=== PATIENT | male | born 1940 | race Caucasian/White ===

== ENCOUNTER 2019-04-25 12:48 | Inpatient (IN) | payer MEDICAID, MEDICARE, OTHER ==
[~2019-04-25] VITALS: Ht 180.3 cm; Wt 66.4 kg
[~2019-04-25 12:48] MED LIST: CEPHALEXIN500 MG ORAL; KEFLEX500 MG PO; UNOBMED
[2019-04-25 12:55] VITALS: BP 118/104
--- NOTE | 2019-04-25 13:03 | Emergency Room Report ---
History of Present Illness General Chief Complaint: Chest Pain Source: Family Member Present Illness HPI 79-year-old male denies any past medical history no surgical history no family history of cardiac disease presents with chest pain that started yesterday, constant he does endorse some shortness of breath no aggravating relieving factors severity is mild, patient endorses a discomfort he cannot really describe it, no radiation of the pain, not ripping or tearing, patient presents for evaluation Allergies: Coded Allergies: No Known Allergies (Unverified , 04/25/19) Patient History Past Medical History: see triage record Reviewed Nursing Documentation: PMH: Agreed; PSxH: Agreed Nursing Documentation-PMH Past Medical History: No History, Except For Review of Systems All Other Systems: negative except mentioned in HPI Physical Exam Sp02 EP Interpretation: reviewed, normal General Appearance: well appearing, no apparent distress, alert Head: normocephalic, atraumatic Eyes: bilateral eye PERRL, bilateral eye EOMI ENT: uvula midline, moist mucus membranes Neck: supple, thyroid normal, supple/symm/no masses Respiratory: lungs clear, no respiratory distress, no retraction, no accessory muscle use Cardiovascular #1: normal peripheral pulses, regular rate, rhythm, no edema, no gallop, no murmur Gastrointestinal: non tender, soft, no guarding, no rebound Musculoskeletal: normal inspection Neurologic: alert, oriented x3 Psychiatric: mood/affect normal Skin: no rash, warm/dry Medical Decision Making Diagnostic Impression: Primary Impression: Chest pain Qualified Codes: R07.9 - Chest pain, unspecified ER Course 79-year-old male, presents with chest pain concerning for possible ACS, differential diagnosis includes pneumonia, dissection, atypical chest pain Aspirin, Ativan given Patient feeling better We will admit patient to telemetry for ACS rule out Patient admitted to Dr. Rangel Laboratory Tests Test 04/25/19 13:05 White Blood Count 17.6 K/UL (4.8-10.8) H Red Blood Count 5.77 M/UL (4.70-6.10) Hemoglobin 15.4 G/DL (14.2-18.0) Hematocrit 48.5 % (42.0-52.0) Mean Corpuscular Volume 84 FL (80-99) Mean Corpuscular Hemoglobin 26.7 PG (27.0-31.0) L Mean Corpuscular Hemoglobin Concent 31.8 G/DL (32.0-36.0) L Red Cell Distribution Width 14.1 % (11.6-14.8) Platelet Count 366 K/UL (150-450) Mean Platelet Volume 5.0 FL (6.5-10.1) L Neutrophils (%) (Auto) % (45.0-75.0) Lymphocytes (%) (Auto) % (20.0-45.0) Monocytes (%) (Auto) % (1.0-10.0) Eosinophils (%) (Auto) % (0.0-3.0) Basophils (%) (Auto) % (0.0-2.0) Differential Total Cells Counted 100 Neutrophils % (Manual) 90 % (45-75) H Lymphocytes % (Manual) 6 % (20-45) L Monocytes % (Manual) 4 % (1-10) Eosinophils % (Manual) 0 % (0-3) Basophils % (Manual) 0 % (0-2) Band Neutrophils 0 % (0-8) Platelet Estimate Adequate Platelet Morphology Normal Red Blood Cell Morphology Normal Prothrombin Time 11.4 SEC (9.30-11.50) Prothrombin Time INR 1.1 (0.9-1.1) PTT 26 SEC (23-33) Sodium Level 141 MMOL/L (136-145) Potassium Level 4.3 MMOL/L (3.5-5.1) Chloride Level 105 MMOL/L (98-107) Carbon Dioxide Level 27 MMOL/L (21-32) Anion Gap 10 mmol/L (5-15) Blood Urea Nitrogen 42 mg/dL (7-18) H Creatinine 1.1 MG/DL (0.55-1.30) Estimate Glomerular Filtration Rate mL/min (>60) Glucose Level 153 MG/DL (74-106) H Calcium Level 9.3 MG/DL (8.5-10.1) Total Bilirubin 0.5 MG/DL (0.2-1.0) Aspartate Amino Transferase (AST) 22 U/L (15-37) Alanine Aminotransferase (ALT) 33 U/L (12-78) Alkaline Phosphatase 78 U/L (46-116) Troponin I 0.005 ng/mL (0.000-0.056) Pro-B-Type Natriuretic Peptide 210 pg/mL (0-125) H Total Protein 7.4 G/DL (6.4-8.2) Albumin 3.6 G/DL (3.4-5.0) Globulin 3.8 g/dL Albumin/Globulin Ratio 0.9 (1.0-2.7) L Lipase 66 U/L (73-393) L EKG Diagnostic Results EKG Time: 12:54 EP Interpretation: Sinus tachycardia, rate 110, QTc 44, no acute ST elevations , normal axis, ST Segments: other - Flipped T waves 2 3 aVF Rhythm Strip Diag. Results Rhythm Strip Time: 13:06 EP Interpretation: yes Rate: 107 Rhythm: other - Sinus tachycardia Chest X-Ray Diagnostic Results Chest X-Ray Diagnostic Results : Chest X-Ray Ordered: Yes # of Views/Limited/Complete: 1 View Indication: Chest Pain EP Interpretation: Yes Interpretation: no consolidation, no effusion, no pneumothorax, no acute cardiopulmonary disease Impression: No acute disease Electronically Signed by: Abrahan Acevedo MD Disposition: ADMITTED INPATIENT Condition: Stable Abrahan Acevedo MD Apr 25, 2019 13:03
[2019-04-25] MEDS ORDERED: Mylanta II UD 30ml ORAL ONE (13:15)
[2019-04-25] MEDS ORDERED: LORazepam Inj 2mg/ml 1ml IV ONE (13:15)
[2019-04-25 13:44] LABS: HEMATOCRIT 48.5 % (42.0-52.0); HEMOGLOBIN 15.4 G/DL (14.2-18.0); MEAN CORPUSCULAR VOLUME 84 FL (80-99); PLATELET COUNT 366 K/UL (150-450); RED BLOOD COUNT 5.77 M/UL (4.70-6.10); RED CELL DISTRIBUTION WIDTH 14.1 % (11.6-14.8); WHITE BLOOD COUNT 17.6 K/UL (4.8-10.8)
[2019-04-25 13:58] LABS: ANION GAP 10 mmol/L (5-15); BLOOD UREA NITROGEN 42 mg/dL (7-18); CALCIUM 9.3 MG/DL (8.5-10.1); CARBON DIOXIDE 27 MMOL/L (21-32); CHLORIDE 105 MMOL/L (98-107); CREATININE 1.1 MG/DL (0.55-1.30); POTASSIUM 4.3 MMOL/L (3.5-5.1); SODIUM 141 MMOL/L (136-145)
[2019-04-25 13:59] LABS: INR 1.1 (0.9-1.1)
[2019-04-25 14:09] LABS: ALANINE AMINOTRANSFERASE 33 U/L (12-78); ALBUMIN 3.6 G/DL (3.4-5.0); ALBUMIN/GLOBULIN RATIO 0.9 (1.0-2.7); ALKALINE PHOSPHATASE 78 U/L (46-116); ASPARTATE AMINO TRANSFERASE 22 U/L (15-37); BILIRUBIN,TOTAL 0.5 MG/DL (0.2-1.0)
[2019-04-25 16:00] VITALS: BP 107/72
--- NOTE | 2019-04-25 16:51 | History & Physical ---
History and Physical History & Physicial History and Physical HPI Patient is a 79-year-old male with no significant past medical or surgical history, admitted with chest pain that started yesterday, constant he does endorse some shortness of breath no aggravating relieving factors severity is mild, patient endorses a discomfort he cannot really describe it, no radiation of the pain, not ripping or tearing, patient presents for evaluation Allergies: No Known Allergies Past Medical History: NA All Other Systems: negative except mentioned in HPI Physical Exam Vital signs noted General Appearance: well appearing, no apparent distress, alert Head: normocephalic, atraumatic Eyes: bilateral eye PERRL, bilateral eye EOMI ENT: uvula midline, moist mucus membranes Neck: supple, thyroid normal, supple/symm/no masses Respiratory: lungs clear, no respiratory distress, no retraction, no accessory muscle use Cardiovascular: normal peripheral pulses, HS1, HS2 normal, regular rate, rhythm , no edema, no gallop, no murmur Gastrointestinal: non tender, soft, no guarding, no rebound Musculoskeletal: normal inspection Neurologic: alert, oriented x3 Psychiatric: mood/affect normal Skin: no rash, warm/dry Impression: Chest pain No significant previous medical history Plan Telemetry Aspirin Monitor labs PPX Cardiology Consult Cardiac Diet Echocardiogram LE dupplex, VQ scan Patient feeling better We will admit patient to telemetry for ACS rule out Patient admitted to Dr. Rangel Laboratory Tests Test 04/25/19 13:05 White Blood Count 17.6 K/UL (4.8-10.8) H Red Blood Count 5.77 M/UL (4.70-6.10) Hemoglobin 15.4 G/DL (14.2-18.0) Hematocrit 48.5 % (42.0-52.0) Mean Corpuscular Volume 84 FL (80-99) Mean Corpuscular Hemoglobin 26.7 PG (27.0-31.0) L Mean Corpuscular Hemoglobin Concent 31.8 G/DL (32.0-36.0) L Red Cell Distribution Width 14.1 % (11.6-14.8) Platelet Count 366 K/UL (150-450) Mean Platelet Volume 5.0 FL (6.5-10.1) L Neutrophils (%) (Auto) % (45.0-75.0) Lymphocytes (%) (Auto) % (20.0-45.0) Monocytes (%) (Auto) % (1.0-10.0) Eosinophils (%) (Auto) % (0.0-3.0) Basophils (%) (Auto) % (0.0-2.0) Differential Total Cells Counted 100 Neutrophils % (Manual) 90 % (45-75) H Lymphocytes % (Manual) 6 % (20-45) L Monocytes % (Manual) 4 % (1-10) Eosinophils % (Manual) 0 % (0-3) Basophils % (Manual) 0 % (0-2) Band Neutrophils 0 % (0-8) Platelet Estimate Adequate Platelet Morphology Normal Red Blood Cell Morphology Normal Prothrombin Time 11.4 SEC (9.30-11.50) Prothrombin Time INR 1.1 (0.9-1.1) PTT 26 SEC (23-33) Sodium Level 141 MMOL/L (136-145) Potassium Level 4.3 MMOL/L (3.5-5.1) Chloride Level 105 MMOL/L (98-107) Carbon Dioxide Level 27 MMOL/L (21-32) Anion Gap 10 mmol/L (5-15) Blood Urea Nitrogen 42 mg/dL (7-18) H Creatinine 1.1 MG/DL (0.55-1.30) Estimate Glomerular Filtration Rate mL/min (>60) Glucose Level 153 MG/DL (74-106) H Calcium Level 9.3 MG/DL (8.5-10.1) Total Bilirubin 0.5 MG/DL (0.2-1.0) Aspartate Amino Transferase (AST) 22 U/L (15-37) Alanine Aminotransferase (ALT) 33 U/L (12-78) Alkaline Phosphatase 78 U/L (46-116) Troponin I 0.005 ng/mL (0.000-0.056) Pro-B-Type Natriuretic Peptide 210 pg/mL (0-125) H Total Protein 7.4 G/DL (6.4-8.2) Albumin 3.6 G/DL (3.4-5.0) Globulin 3.8 g/dL Albumin/Globulin Ratio 0.9 (1.0-2.7) L Lipase 66 U/L (73-393) L EKG Diagnostic Results EKG Time: 12:54 EP Interpretation: Sinus tachycardia, rate 110, QTc 44, no acute ST elevations , normal axis, ST Segments: other - Flipped T waves 2 3 aVF Chest X-Ray: no consolidation, no effusion, no pneumothorax, no acute cardiopulmonary disease Zbigniew Whittington MD Apr 25, 2019 16:51
[2019-04-25] MEDS ORDERED: Nitroglycerin Subl 0.4mg tab SL PRN (17:00)
[2019-04-25 20:00] VITALS: BP 96/53
[2019-04-25] MEDS: Heparin 5000 units/ml inj SUBQ SCH (21:17)
--- NOTE | 2019-04-25 22:45 | Consultation ---
DATE OF CONSULTATION: 04/25/2019 CARDIOLOGY CONSULTATION CONSULTING PHYSICIAN: Zbigniew Stark M.D. REFERRING PHYSICIAN: Roly Rangel M.D., Zbigniew Whittington M.D. REASON: Chest pain. HISTORY OF PRESENT ILLNESS: This is a poor historian. He is age 79. He apparently is homeless according to records although the patient states he lives alone, but cannot relate his address. The patient presented to the hospital with chest pain that started yesterday. He had some shortness of breath, but is unable to describe any aggravating, relieving, or associated factors. The pain he describes was ongoing since yesterday and now is almost gone. He is unaware of any prior similar episodes and does not think he has been in the hospital before. PAST MEDICAL HISTORY: Otherwise unknown. MEDICATIONS: He takes no medications. ALLERGIES: No known drug allergies. SOCIAL HISTORY: He denies smoking, alcohol, or substance abuse. REVIEW OF SYSTEMS: No fevers or chills. No cough. No history of positive PPD. No history of diabetes, thyroid disorder, or hyperlipidemia. No history of seizure or stroke. No change in bowel habits. No known history of kidney disease. No recent chest trauma. PHYSICAL EXAMINATION: VITAL SIGNS: Blood pressure 118/104 in the emergency room, presently 107/72, heart rate 102, respiratory rate 18, afebrile. HEENT: Temporal wasting. Pale conjunctivae. Thin and frail. Oropharynx clear. NECK: Supple. LUNGS: Clear. Chest Wall with left sided tenderness. CARDIAC: Regular rhythm. Rapid rate. Normal S1, S2 with no murmur, rub, or gallop. ABDOMEN: Soft, nontender. EXTREMITIES: No edema. Muscle atrophy noted. LABORATORY AND DIAGNOSTIC DATA: BUN 42, creatinine 1.1, sodium 141, potassium 4.3, bicarb 27, glucose 153. Troponin negative x2. Albumin 3.6. Pro-natriuretic peptide 210. Amylase, lipase normal. White count 17.6, hemoglobin 15.4. EKG reveals sinus tachycardia and inferolateral ST-T wave depression. Chest x-ray revealed no acute process. IMPRESSION: 1. Atypical chest pain with reproducible left chest wall pain. 2. Leukocytosis. 3. Abnormal EKG suggestive of acute ischemia. 4. Sinus tachycardia. 5. Possible homelessness. 6. Hyperglycemia. 7. Prerenal azotemia due to hypovolemia and dehydration. 8. No clinical signs of acute congestive heart failure. PLAN: 1. Cardiac monitoring. 2. Hydration. 3. Echocardiogram. 4. Follow up troponin level. 5. Consider antimicrobials. 6. Urine tox screen. 7. Thyroid panel. 8. Lipid panel. 9. Further evaluation of chest pain may follow depending on results of preliminary studies. 10. A venous duplex scan has been requested by primary physician and will be reviewed once available. Zbigniew Stark M.D. DR: SHANELL JOB#: [id number] CC: SARAH
[2019-04-26] VITALS: BP 104/68
[2019-04-26 04:00] VITALS: BP 110/69
[2019-04-26 08:00] VITALS: BP 116/70
[2019-04-26 08:08] LABS: CHOLESTEROL 132 MG/DL (< 200); HDL CHOLESTEROL 51 MG/DL (40-60); TRIGLYCERIDES 102 MG/DL (30-150)
--- NOTE | 2019-04-26 08:40 | General Progress Note ---
Assessment/Plan Assessment/Plan: chest pain possible ACS leukocytosis PLAN cards clearance meds as is repeat cbc ID evaluation impression, plan, and exam edited and reviewed in detail care discussed with RN Subjective Allergies: Coded Allergies: CHOCOLATE FLAVOR (Verified Allergy, Mild, 04/25/19) Subjective overall care noted cards reviewed no cp or sob Objective Last 24 Hour Vital Signs Date Time Temp Pulse Resp B/P (MAP) Pulse Ox O2 Delivery O2 Flow Rate FiO2 04/26/19 08:23 Room Air 04/26/19 04:00 97.6 94 18 110/69 (83) 94 04/26/19 04:00 87 04/26/19 00:00 93 04/26/19 00:00 97.9 95 19 104/68 (80) 94 04/25/19 21:00 Room Air 04/25/19 20:00 97.3 97 19 96/53 (67) 95 04/25/19 20:00 96 04/25/19 16:03 102 04/25/19 16:00 97.2 102 18 107/72 (84) 97 04/25/19 15:44 Room Air 04/25/19 15:18 97.0 99 20 102/68 98 Room Air 04/25/19 12:59 97.7 112 18 121/76 (91) 97 Room Air 04/25/19 12:55 104 20 Room Air 04/25/19 12:55 96.6 104 20 118/104 99 Room Air Intake and Output 04/25/19 04/26/19 18:59 06:59 Intake Total 1000 ml Balance 1000 ml Intake Oral 0 ml IV Total 1000 ml # Voids 1 2 Laboratory Tests 04/25/19 13:05: White Blood Count 17.6H, Red Blood Count 5.77, Hemoglobin 15.4, Hematocrit 48.5 , Mean Corpuscular Volume 84, Mean Corpuscular Hemoglobin 26.7L, Mean Corpuscular Hemoglobin Concent 31.8L, Red Cell Distribution Width 14.1, Platelet Count 366, Mean Platelet Volume 5.0L, Neutrophils (%) (Auto) , Lymphocytes (%) (Auto) , Monocytes (%) (Auto) , Eosinophils (%) (Auto) , Basophils (%) (Auto) , Differential Total Cells Counted 100, Neutrophils % ( Manual) 90H, Lymphocytes % (Manual) 6L, Monocytes % (Manual) 4, Eosinophils % ( Manual) 0, Basophils % (Manual) 0, Band Neutrophils 0, Platelet Estimate Adequate, Platelet Morphology Normal, Red Blood Cell Morphology Normal, Prothrombin Time 11.4, Prothromb Time International Ratio 1.1, Activated Partial Thromboplast Time 26, Sodium Level 141, Potassium Level 4.3, Chloride Level 105, Carbon Dioxide Level 27, Anion Gap 10, Blood Urea Nitrogen 42H, Creatinine 1.1, Estimat Glomerular Filtration Rate , Glucose Level 153H, Calcium Level 9.3, Total Bilirubin 0.5, Aspartate Amino Transf (AST/SGOT) 22, Alanine Aminotransferase (ALT/SGPT) 33, Alkaline Phosphatase 78, Troponin I 0.005, Pro-B-Type Natriuretic Peptide 210H, Total Protein 7.4, Albumin 3.6, Globulin 3.8, Albumin/Globulin Ratio 0.9L, Lipase 66L 04/25/19 19:30: Troponin I 0.016 04/26/19 06:03: Hemoglobin A1c 5.4, Triglycerides Level 102, Cholesterol Level 132, LDL Cholesterol 60, HDL Cholesterol 51, Cholesterol/HDL Ratio 2.6L, Thyroid Stimulating Hormone (TSH) 2.428 Height (Feet): 5 Height (Inches): 11.00 Weight (Pounds): 147 Objective WDWN NAD clear breath sounds bilaterally without rhonchi or wheeze [id number] without MRG NABS nontender no HSM no CCE nonfocal Roly Rangel MD Apr 26, 2019 08:40
[2019-04-26 08:50] LABS: BASOPHILS % (AUTO) 0.6 % (0.0-2.0); EOSINOPHILS % (AUTO) 1.2 % (0.0-3.0); HEMATOCRIT 42.3 % (42.0-52.0); HEMOGLOBIN 13.3 G/DL (14.2-18.0); LYMPHOCYTES % (AUTO) 12.5 % (20.0-45.0); MEAN CORPUSCULAR VOLUME 84 FL (80-99); MONOCYTES % (AUTO) 10.1 % (1.0-10.0); NEUTROPHILS % (AUTO) 75.7 % (45.0-75.0); PLATELET COUNT 316 K/UL (150-450); RED BLOOD COUNT 5.02 M/UL (4.70-6.10); WHITE BLOOD COUNT 15.6 K/UL (4.8-10.8)
[2019-04-26] MEDS ORDERED: Aspirin Baby 81mg ORAL SCH (09:00)
[2019-04-26] MEDS: Heparin 5000 units/ml inj SUBQ SCH ×2 (09:41→20:13)
[2019-04-26 12:00] VITALS: BP 109/82
--- NOTE | 2019-04-26 12:47 | Cardiology Report ---
APPROVED REPORT EXAM: Two-dimensional and M-mode echocardiogram with Doppler and color Doppler. INDICATION Chest Pain M-Mode DIMENSIONS IVSd0.7 (0.7-1.1cm)Left Atrium (MM)3.0 (1.6-4.0cm) LVDd3.7 (3.5-5.6cm)Aortic Root3.4 (2.0-3.7cm) PWd0.9 (0.7-1.1cm)Aortic Cusp Exc.1.9 (1.5-2.0cm) IVSs1.0 cm LVDs2.2 (2.5-4.0cm) PWs1.0 cm Technically difficult study due to poor acoustical windows, all apical images obtained from subcostal. Normal left ventricular chamber size, systolic function and wall motion to extent visualized. Left ventricular ejection fraction estimated to be 55-60%. All other cardiac chamber sizes are within normal limits. Aortic valve calcification with normal cusp excursion . Moderately thickened mitral valve leaflets with normal excursion,posterior motion of anteriro mitral valve leaflet seen . Mild mitral annulus and aortic root calcification. Pulmonic valve not well visualized. IVC at normal size with physiologic collapse . A color flow and spectral Doppler study was performed and revealed: Mitral diastolic velocities suggest reduced left ventricular relaxation c/w mild LV diastolic dysfunction (Grade I ) Trace mitral regurgitation. Trace tricuspid regurgitation. Tricuspid systolic velocities suggests peak right ventricular systolic pressure of 14mmHg.
--- NOTE | 2019-04-26 12:48 | Diagnostic Imaging Report ---
Indication: Chest pain Comparison: None A single view chest radiograph was obtained. Findings: Cardiomediastinal appearance is within normal limits for age. The lungs are clear. Pulmonary vascularity is appropriate. The diaphragmatic contour is smooth and costophrenic angles are sharp. No pleural effusions are identified. The bones are unremarkable. Impression: No acute findings
[2019-04-26 12:50] LABS: APPEARANCE,URINE SLIGHTLY CLOUDY; BILIRUBIN, URINE NEGATIVE (NEGATIVE); COLOR,URINE PALE YELLOW; GLUCOSE, URINE (UA) NEGATIVE (NEGATIVE); KETONES,URINE NEGATIVE (NEGATIVE); LEUKOCYTE ESTERASE ,URINE 3+ (NEGATIVE); NITRITE,URINE POSITIVE (NEGATIVE); PH,URINE 5 (4.5-8.0); PROTEIN,URINE 1+ (NEGATIVE); UROBILINOGEN,URINE NORMAL MG/DL (0.0-1.0)
[2019-04-26] MEDS ORDERED: Omnipaue 350mg/ml 100ml vial INJ PRN (13:15)
--- NOTE | 2019-04-26 15:32 | Diagnostic Imaging Report ---
Indication: Chest pain Technique: Continuous helical transaxial imaging of the chest was obtained from the thoracic inlet to the upper abdomen during rapid intravenous contrast administration. Arterial phase of enhancement obtained. Coronal 2-D reformats were also obtained and maximum intensity projection images in multiple planes. Study obtained in a Siemens sensation [address] Automatic Exposure Control was utilized. Total Dose length Product (DLP): [address] Dose Index Volume (CTDIvol): 45.9 mGy Comparison: None Findings: There is a hiatal hernia. There are small lymph nodes in the mediastinum and bilateral pulmonary kelechi nonspecific. The nodes are small measuring less than a centimeter. There is no evidence of pulmonary embolus. There is no evidence of aortic dissection or aneurysm. The heart is unremarkable. There is a pectus excavatum. There are epiphrenic nodes present at the diaphragm. There are multiple hypodensities within the liver nonspecific. These could be cystic or solid and require further evaluation. There is a T12 vertebral hemangioma noted. Osseous structures are otherwise unremarkable. IMPRESSION: Multiple liver hypodensities incidentally noted. These could be cystic or solid and require further evaluation. Recommend follow-up triphasic liver CT. No evidence of pulmonary embolus aortic dissection or aneurysm. Small nodes throughout the mediastinum and pulmonary kelechi nonspecific. T12 hemangioma Pectus excavatum Hiatal hernia The CT scanner at [facility] is accredited by the [employer] and the scans are performed using dose optimization techniques as appropriate to a performed exam including Automatic Exposure control.
[2019-04-26 16:00] VITALS: BP 115/68
--- NOTE | 2019-04-26 16:00 | Consultation ---
DATE OF CONSULTATION: 04/26/2019 INFECTIOUS DISEASES CONSULTATION CONSULTING PHYSICIAN: Viviana Nichole M.D. REFERRING PHYSICIAN: Roly Rangel M.D. REASON FOR CONSULTATION: Leukocytosis. HISTORY OF PRESENTING ILLNESS: This is a 79-year-old gentleman with no significant past medical history, who came in with chest pain along with some shortness of breath. He was found to have a leukocytosis and an Infectious Diseases consultation has been obtained for antibiotics. PAST MEDICAL HISTORY: Unremarkable. SOCIAL HISTORY: He used to be a smoker. He does not smoke anymore. He used to drink alcohol. He does not drink anymore. No history of drug use. FAMILY HISTORY: Noncontributory. REVIEW OF SYSTEMS: RESPIRATORY: No fever, chills, cough. He has shortness of breath. He has chest pain. CARDIAC: He has chest pain. No palpitations. No dizziness. No syncope. GASTROINTESTINAL: No nausea. No vomiting. No abdominal pain. No diarrhea. MEDICATIONS: As an inpatient, he is on aspirin, subcutaneous heparin, Tylenol, Zofran, nitroglycerin. ALLERGIES: To chocolate flavor noted. PHYSICAL EXAMINATION: VITAL SIGNS: Temperature of 97.6, T-max of 97.9, pulse of 93, respiratory rate of 18, blood pressure 116/70, O2 saturation of 98%. HEENT: Pupils equally reactive to light and accommodation. Mouth appears clean without thrush. NECK: Supple. No adenopathy. No JVD. CARDIOVASCULAR: Regular rate and rhythm. No murmurs. LUNGS: Clear to auscultation bilaterally. No crackles. No wheezes. ABDOMEN: Soft and nontender. No organomegaly. EXTREMITIES: No cyanosis, no clubbing, no edema. LABORATORY AND DIAGNOSTIC DATA: White count of 17.6 on 04/25/2019. White count of 15.6 today. Hemoglobin 13.3, hematocrit 42.3, MCV 84, platelet count of 316, neutrophils of 75%. Sodium 141, potassium 4.3, chloride 105, bicarb 27, BUN 42, creatinine 1.1, glucose 153, calcium 9.3, total bilirubin 0.5, AST 22, ALT 33, alkaline phosphatase 78. Beta-natriuretic peptide 210. Total protein 7.4, albumin 3.6, cholesterol of 132, and lipase of 66. A 2D echo showing aortic valve calcification, moderately thickened mitral valve leaflets, trace mitral regurgitation, trace tricuspid regurgitation. Chest x-ray is showing no consolidation, effusion. ASSESSMENT: This is a 79-year-old gentleman with no significant past medical history, who comes in with shortness of breath and chest pain and is found to have: 1. Leukocytosis that is improving. Could be secondary to acute chest syndrome. 2. We would like to rule out endocarditis as a possibility or pericarditis. A 2D echo was unremarkable so far. PLAN: 1. We will order blood cultures. 2. We will order UA and urine cultures. 3. Continue off antibiotics for now. 4. We will follow up the patient clinically. I would like to thank, Dr. Rangel, for this consultation. Viviana Nichole M.D. DR: Chaim JOB#: [id number] CC: Roly Rangel M.D.; Fax#: [phone]
--- NOTE | 2019-04-26 17:00 | Progress Note ---
DATE: 04/26/2019 CARDIOLOGY PROGRESS NOTE SUBJECTIVE: The patient complains of pain on the left chest wall which is resolving with Tylenol. He has no cough or shortness of breath. He admits to be homeless and lives in friends car at times, she is at bedside who is PHYSICAL EXAMINATION: VITAL SIGNS: Blood pressure 110/69, pulse 94, respiratory rate 18. CHEST: Tenderness over the left chest wall. LUNGS: Clear. CARDIAC: Regular. Normal S1, S2. ABDOMEN: Soft. EXTREMITIES: No edema. LABORATORY DATA: White count 15.6, hemoglobin 13.3. Urinalysis is pending. Troponin levels are negative x3. Hemoglobin A1c is 5.4. LDL cholesterol is 60. Pro-natriuretic peptide was 210 yesterday. TSH is IMPRESSION: 1. Persistent leukocytosis. 2. Musculoskeletal chest pain. 3. Prerenal azotemia likely due to hypovolemia and dehydration. 4. Homelessness. PLAN: 1. Continue cautious hydration. 2. Check CT of the chest. 3. Infectious Diseases consultation is pending. 4. Echocardiogram will be reviewed to assess for possible structural heart disease. 5. Analgesics will be continued. Zbigniew Stark M.D. DR: Giorgi JOB#: [id number] CC:
--- NOTE | 2019-04-26 19:17 | Cardiology Report ---
APPROVED REPORT EKG Measurement Heart [id number] Sinus tachycardia T wave abnormality, consider inferolateral ischemia Abnormal ECG
[2019-04-26] MEDS ORDERED: HYDROcodone/Acetamin 5/325 tab ORAL PRN ×2 (20:36→20:37)
[2019-04-27] VITALS: BP 103/66
[2019-04-27 08:00] VITALS: BP 85/54
[2019-04-27] MEDS: Aspirin Baby 81mg ORAL SCH (09:04)
[2019-04-27] MEDS: Heparin 5000 units/ml inj SUBQ SCH ×2 (09:05→20:03)
--- NOTE | 2019-04-27 09:27 | General Progress Note ---
Assessment/Plan Assessment/Plan: chest pain possible ACS leukocytosis possible UTI liver masses ? cystic PLAN add IV cefepime CT liver GI evaluation ID evaluation patient wants to go home impression, plan, and exam edited and reviewed in detail care discussed with RN Subjective Allergies: Coded Allergies: CHOCOLATE FLAVOR (Verified Allergy, Mild, 04/25/19) Subjective overall care noted cards reviewed ID noted UTI + Objective Last 24 Hour Vital Signs Date Time Temp Pulse Resp B/P (MAP) Pulse Ox O2 Delivery O2 Flow Rate FiO2 04/27/19 00:00 98.4 95 18 103/66 (78) 95 04/26/19 21:00 Room Air 04/26/19 16:00 97.5 84 19 115/68 (84) 99 04/26/19 12:00 97.0 90 18 109/82 (91) 96 90 04/26/19 11:50 97.6 Intake and Output 04/26/19 04/27/19 18:59 06:59 # Voids 2 Laboratory Tests 04/26/19 12:10: Urine Color Pale yellow, Urine Appearance Slightly cloudy, Urine pH 5, Urine Specific Mikana 1.020, Urine Protein 1+H, Urine Glucose (UA) Negative, Urine Ketones Negative, Urine Blood 2+H, Urine Nitrite PositiveH, Urine Bilirubin Negative, Urine Urobilinogen Normal, Urine Leukocyte Esterase 3+H, Urine RBC 5- 10H, Urine WBC 40-60H, Urine Squamous Epithelial Cells Occasional, Urine Calcium Oxalate Crystals , Urine Bacteria ManyH Height (Feet): 5 Height (Inches): 11.00 Weight (Pounds): 147 Objective WDWN NAD clear breath sounds bilaterally without rhonchi or wheeze [id number] without MRG NABS nontender no HSM no CCE nonfocal Roly Rangel MD Apr 27, 2019 09:26
[2019-04-27] MEDS ORDERED: Omnipaque-300 100ml vial INJ PRN ×2 (09:30→23:30)
[2019-04-27 09:41] LABS: EOSINOPHILS % (AUTO) 2.9 % (0.0-3.0); HEMATOCRIT 36.6 % (42.0-52.0); HEMOGLOBIN 11.7 G/DL (14.2-18.0); LYMPHOCYTES % (AUTO) 15.1 % (20.0-45.0); MEAN CORPUSCULAR VOLUME 84 FL (80-99); MONOCYTES % (AUTO) 11.6 % (1.0-10.0); NEUTROPHILS % (AUTO) 69.3 % (45.0-75.0); PLATELET COUNT 282 K/UL (150-450); RED BLOOD COUNT 4.35 M/UL (4.70-6.10); RED CELL DISTRIBUTION WIDTH 14.3 % (11.6-14.8); WHITE BLOOD COUNT 8.8 K/UL (4.8-10.8)
[2019-04-27 09:52] LABS: ANION GAP 2 mmol/L (5-15); BLOOD UREA NITROGEN 14 mg/dL (7-18); CALCIUM 8.7 MG/DL (8.5-10.1); CARBON DIOXIDE 29 MMOL/L (21-32); CHLORIDE 108 MMOL/L (98-107); SODIUM 139 MMOL/L (136-145)
--- NOTE | 2019-04-27 11:19 | Infectious Diseases Prog Note ---
Assessment/Plan Assessment/Plan antibiotics : none A 1. gram negative UTI 2. leucocytosis resolved P 1. start cefepime 2. will follow up cultures Subjective Constitutional: Denies: fever, chills Respiratory: Denies: shortness of breath, dry cough Gastrointestinal/Abdominal: Denies: nausea, vomiting, diarrhea Allergies: Coded Allergies: CHOCOLATE FLAVOR (Verified Allergy, Mild, 04/25/19) Objective Vital Signs Last 24 Hour Vital Signs Date Time Temp Pulse Resp B/P (MAP) Pulse Ox O2 Delivery O2 Flow Rate FiO2 04/27/19 00:00 98.4 95 18 103/66 (78) 95 04/26/19 21:00 Room Air 04/26/19 16:00 97.5 84 19 115/68 (84) 99 04/26/19 12:00 97.0 90 18 109/82 (91) 96 90 04/26/19 11:50 97.6 Height (Feet): 5 Height (Inches): 11.00 Weight (Pounds): 147 Respiratory/Chest: lungs clear Cardiovascular: normal rate, regular rhythm, no gallop/murmur Abdomen: soft, non tender Extremities: no edema Microbiology Date/Time Source Procedure Growth Status 04/26/19 12:10 Urine,Clean Catch Urine Culture - Preliminary Gram Negative Bacillus 1 Resulted Laboratory Tests Test 04/26/19 12:10 04/27/19 09:29 Urine Color Pale yellow Urine Appearance Slightly cloudy Urine pH 5 (4.5-8.0) Urine Specific [place] 1.020 (1.005-1.035) Urine Protein 1+ (NEGATIVE) H Urine Glucose (UA) Negative (NEGATIVE) Urine Ketones Negative (NEGATIVE) Urine Blood 2+ (NEGATIVE) H Urine Nitrite Positive (NEGATIVE) H Urine Bilirubin Negative (NEGATIVE) Urine Urobilinogen Normal MG/DL (0.0-1.0) Urine Leukocyte Esterase 3+ (NEGATIVE) H Urine RBC 5-10 /HPF (0 - 0) H Urine WBC 40-60 /HPF (0 - 0) H Urine Squamous Epithelial Cells Occasional /LPF Urine Calcium Oxalate Crystals /LPF (NONE) Urine Bacteria Many /HPF (NONE) H White Blood Count 8.8 K/UL (4.8-10.8) Red Blood Count 4.35 M/UL (4.70-6.10) L Hemoglobin 11.7 G/DL (14.2-18.0) L Hematocrit 36.6 % (42.0-52.0) L Mean Corpuscular Volume 84 FL (80-99) Mean Corpuscular Hemoglobin 26.9 PG (27.0-31.0) L Mean Corpuscular Hemoglobin Concent 32.0 G/DL (32.0-36.0) Red Cell Distribution Width 14.3 % (11.6-14.8) Platelet Count 282 K/UL (150-450) Mean Platelet Volume 5.3 FL (6.5-10.1) L Neutrophils (%) (Auto) 69.3 % (45.0-75.0) Lymphocytes (%) (Auto) 15.1 % (20.0-45.0) L Monocytes (%) (Auto) 11.6 % (1.0-10.0) H Eosinophils (%) (Auto) 2.9 % (0.0-3.0) Basophils (%) (Auto) 1.0 % (0.0-2.0) Sodium Level 139 MMOL/L (136-145) Potassium Level 4.0 MMOL/L (3.5-5.1) Chloride Level 108 MMOL/L (98-107) H Carbon Dioxide Level 29 MMOL/L (21-32) Anion Gap 2 mmol/L (5-15) L Blood Urea Nitrogen 14 mg/dL (7-18) Creatinine 1.0 MG/DL (0.55-1.30) Estimat Glomerular Filtration Rate mL/min (>60) Glucose Level 115 MG/DL (74-106) H Calcium Level 8.7 MG/DL (8.5-10.1) Magnesium Level 1.9 MG/DL (1.8-2.4) Vitamin B12 Level 256 PG/ML (193-986) Folate 10.5 NG/ML (8.6-58.9) Current Medications Medications (Trade) Dose Ordered Sig/Lou Route PRN Reason Start Time Stop Time Status Last Admin Dose Admin Acetaminophen (Tylenol) 650 mg Q6H PRN ORAL Mild Pain/Temp > 100.5 04/26/19 15:31 05/26/19 15:30 04/27/19 06:28 Acetaminophen/ Hydrocodone Bitart ([place] 5/325) 1 tab Q4H PRN ORAL Mild Pain (Pain Scale 1-3) 04/26/19 20:36 05/03/19 20:35 Acetaminophen/ Hydrocodone Bitart ([place] 5/325) 2 tab Q4H PRN ORAL Moderate Pain (Pain Scale 4-6) 04/26/19 20:37 05/03/19 20:36 Aspirin (ASA) 81 mg DAILY ORAL 04/27/19 09:00 05/26/19 08:59 04/27/19 09:04 Barium Sulfate (Readi-Cat 2) 450 ml NOW PRN ORAL Radiology Procedure 04/27/19 09:30 04/29/19 09:21 Cefepime HCl 1 gm/ Dextrose 50 ml @ 100 mls/hr Q24H IVPB 04/27/19 12:00 05/04/19 11:59 Heparin Sodium (Porcine) (Heparin 5000 units/ml) 5,000 units EVERY 12 HOURS SUBQ 04/26/19 21:00 05/25/19 20:59 04/27/19 09:05 Iohexol (OMNIPAQUE-300 100ml) 100 ml NOW PRN INJ Radiology Procedure 04/27/19 09:30 04/29/19 09:21 Iohexol (Omnipaque) 100 mg NOW PRN INJ Radiology Procedure 04/27/19 13:15 04/28/19 13:14 Ondansetron HCl (Zofran) 4 mg Q6H PRN IVP Nausea & Vomiting 04/26/19 15:31 05/26/19 15:30 Viviana Nichole MD Apr 27, 2019 11:19
[2019-04-27 12:00] VITALS: BP 112/79
[2019-04-27] MEDS ORDERED: Omnipaue 350mg/ml 100ml vial INJ PRN (13:15)
[2019-04-27 16:00] VITALS: BP 100/69
[2019-04-27 20:00] VITALS: BP 108/73
--- NOTE | 2019-04-27 23:20 | General Progress Note ---
Assessment/Plan Assessment/Plan: GI CONSULT Dictated Will order CT of abd with IV contrast Thank you P MD Greg Subjective Allergies: Coded Allergies: CHOCOLATE FLAVOR (Verified Allergy, Mild, 04/25/19) Objective Last 24 Hour Vital Signs Date Time Temp Pulse Resp B/P (MAP) Pulse Ox O2 Delivery O2 Flow Rate FiO2 04/27/19 21:00 Room Air 04/27/19 20:00 98.1 87 19 108/73 (85) 100 04/27/19 16:00 99.0 84 18 100/69 (79) 04/27/19 12:00 99.2 107 20 112/79 (90) 99 04/27/19 09:00 Room Air 04/27/19 08:00 98.0 87 16 85/54 (64) 99 04/27/19 00:00 98.4 95 18 103/66 (78) 95 Intake and Output 04/26/19 04/27/19 19:00 07:00 # Voids 2 Laboratory Tests 04/27/19 09:29: White Blood Count 8.8, Red Blood Count 4.35L, Hemoglobin 11.7L, Hematocrit 36.6L , Mean Corpuscular Volume 84, Mean Corpuscular Hemoglobin 26.9L, Mean Corpuscular Hemoglobin Concent 32.0, Red Cell Distribution Width 14.3, Platelet Count 282, Mean Platelet Volume 5.3L, Neutrophils (%) (Auto) 69.3, Lymphocytes ( %) (Auto) 15.1L, Monocytes (%) (Auto) 11.6H, Eosinophils (%) (Auto) 2.9, Basophils (%) (Auto) 1.0, Sodium Level 139, Potassium Level 4.0, Chloride Level 108H, Carbon Dioxide Level 29, Anion Gap 2L, Blood Urea Nitrogen 14, Creatinine 1.0, Estimat Glomerular Filtration Rate , Glucose Level 115H, Calcium Level 8.7 , Magnesium Level 1.9, Vitamin B12 Level 256, Folate 10.5 Height (Feet): 5 Height (Inches): 11.00 Weight (Pounds): 147 Chastity Garza MD Apr 27, 2019 23:20
--- NOTE | 2019-04-28 | Consultation ---
DATE OF CONSULTATION: 04/27/2019 GASTROENTEROLOGY CONSULTATION CONSULTING PHYSICIAN: Chastity Garza M.D. CHIEF COMPLAINT: I was asked to see this patient by Dr. Roly Rangel for evaluation of abnormal CT scan. HISTORY OF PRESENT ILLNESS: The patient is a 79-year-old white man with no significant past medical history who also does not have much of medical care who was brought into the hospital due to chest pain that started a day prior to admission. The patient had a CT scan performed for evaluation of his symptoms and CT of the chest with CT angiogram showed multiple liver hypodensities, which were found incidentally, but could not be further characterized. More dedicated liver CT was suggested. The patient denies any abdominal pain or nausea or vomiting or history of liver disease. He drinks occasionally. PAST MEDICAL HISTORY: Otherwise negative. FAMILY HISTORY: Noncontributory. SOCIAL HISTORY: The patient does not smoke. Drinks occasionally. ALLERGIES: None. REVIEW OF SYSTEMS: Otherwise negative. PHYSICAL EXAMINATION: GENERAL: Well-developed, well-nourished white man, seen in his room. HEENT: Normocephalic and atraumatic. Sclerae anicteric. Oropharynx clear. NECK: Supple. CHEST: Clear to auscultation. CARDIOVASCULAR: Revealed a regular rate. ABDOMEN: Soft. EXTREMITIES: Revealed no edema. LABORATORY DATA: Noted. ASSESSMENT: This patient presents with abnormal CT scan. The differential diagnosis would include benign cystic structures or hemangiomas. The patient will have to have a dedicated CT of the abdomen with IV contrast to better characterize these lesions. If malignancy is a suspicion, then further evaluation with needle biopsy can be done. Otherwise, the patient can be followed up with a repeat CT scan in about 3 to 6 months for comparison. RECOMMENDATIONS: Per above discussion and per orders written in the chart. Thank you for asking me to participate in the care of this patient. Chastity Garza M.D. DR: HAZEL JOB#: [id number] CC: SARAH
--- NOTE | 2019-04-28 00:45 | Progress Note ---
DATE: 04/27/2019 CARDIOLOGY PROGRESS NOTE SUBJECTIVE: The patient is anxious to go home, although he is homeless. He had a CT angiogram of the chest that revealed no PE or pulmonary findings, however, abnormalities in the liver were notable for hypodense lesion. OBJECTIVE: VITAL SIGNS: Blood pressure 103/66, pulse 95, respirations 18, and afebrile. LUNGS: Clear. CARDIAC: Regular. Normal S1, S2. ABDOMEN: Soft. EXTREMITIES: No edema. LABORATORY DATA: White count 8.8, hemoglobin 11.7. Potassium 4, BUN 14, creatinine 1, magnesium 1.9. Glucose 115. B12 256. IMPRESSION: 1. Musculoskeletal chest pain. No signs of acute coronary insufficiency. 2. Abnormal liver lesions. 3. Resolving leukocytosis. 4. Urinary tract infection. 5. B12 deficiency. PLAN: 1. B12 supplements. 2. Discontinue IV fluids. 3. No additional cardiovascular workup presently planned. 4. Antiplatelet therapy here. 5. Antimicrobials. 6. Gastrointestinal evaluation regarding liver lesions noted with imaging. Additional imaging pending. Zbigniew Stark M.D. DR: CHARLIE JOB#: [id number] CC:
[2019-04-28 04:00] VITALS: BP 103/66
[2019-04-28 08:00] VITALS: BP 105/75
[2019-04-28] MEDS: Aspirin Baby 81mg ORAL SCH (09:00)
[2019-04-28] MEDS: Heparin 5000 units/ml inj SUBQ SCH (09:00)
[2019-04-28] MEDS ORDERED: Vitamin B12 1000mcg/ml Inj IM SCH (09:00)
[2019-04-28 09:08] LABS: BASOPHILS % (AUTO) 1.3 % (0.0-2.0); EOSINOPHILS % (AUTO) 3.7 % (0.0-3.0); HEMATOCRIT 39.9 % (42.0-52.0); HEMOGLOBIN 12.7 G/DL (14.2-18.0); LYMPHOCYTES % (AUTO) 22.4 % (20.0-45.0); MEAN CORPUSCULAR VOLUME 85 FL (80-99); NEUTROPHILS % (AUTO) 60.6 % (45.0-75.0); PLATELET COUNT 335 K/UL (150-450); RED BLOOD COUNT 4.72 M/UL (4.70-6.10); RED CELL DISTRIBUTION WIDTH 14.5 % (11.6-14.8); WHITE BLOOD COUNT 9.2 K/UL (4.8-10.8)
[2019-04-28 09:59] LABS: ANION GAP 10 mmol/L (5-15); BLOOD UREA NITROGEN 14 mg/dL (7-18); CALCIUM 9.2 MG/DL (8.5-10.1); CARBON DIOXIDE 25 MMOL/L (21-32); CHLORIDE 107 MMOL/L (98-107); POTASSIUM 3.9 MMOL/L (3.5-5.1); SODIUM 142 MMOL/L (136-145)
[2019-04-28] MEDS ORDERED: NS 500ML ONE (10:49)
--- NOTE | 2019-04-28 10:57 | Infectious Diseases Prog Note ---
Assessment/Plan Assessment/Plan antibiotics : cefepime A 1. e.coli UTI 2. leucocytosis resolved 3. + blood cultures with bacillus likely contaminated P 1. dc cefepime 2. start and continue po levoquin 5 more days 3. will follow up cultures Subjective ROS Limited/Unobtainable: Yes Allergies: Coded Allergies: CHOCOLATE FLAVOR (Verified Allergy, Mild, 04/25/19) Objective Vital Signs Last 24 Hour Vital Signs Date Time Temp Pulse Resp B/P (MAP) Pulse Ox O2 Delivery O2 Flow Rate FiO2 04/28/19 08:00 97.6 97 18 105/75 (85) 99 04/28/19 04:00 97.9 81 18 103/66 (78) 100 04/27/19 21:00 Room Air 04/27/19 20:00 98.1 87 19 108/73 (85) 100 04/27/19 16:00 99.0 84 18 100/69 (79) 04/27/19 12:00 99.2 107 20 112/79 (90) 99 Height (Feet): 5 Height (Inches): 11.00 Weight (Pounds): 146 Respiratory/Chest: lungs clear Cardiovascular: normal rate, regular rhythm, no gallop/murmur Abdomen: soft, non tender Extremities: no edema Microbiology Date/Time Source Procedure Growth Status 04/26/19 11:38 Blood Blood Culture - Final Bacillus Sp Not B. Anthracis Complete 04/26/19 12:10 Urine,Clean Catch Urine Culture - Final Escherichia Coli Complete Laboratory Tests Test 04/28/19 08:50 White Blood Count 9.2 K/UL (4.8-10.8) Red Blood Count 4.72 M/UL (4.70-6.10) Hemoglobin 12.7 G/DL (14.2-18.0) L Hematocrit 39.9 % (42.0-52.0) L Mean Corpuscular Volume 85 FL (80-99) Mean Corpuscular Hemoglobin 26.9 PG (27.0-31.0) L Mean Corpuscular Hemoglobin Concent 31.9 G/DL (32.0-36.0) L Red Cell Distribution Width 14.5 % (11.6-14.8) Platelet Count 335 K/UL (150-450) Mean Platelet Volume 5.3 FL (6.5-10.1) L Neutrophils (%) (Auto) 60.6 % (45.0-75.0) Lymphocytes (%) (Auto) 22.4 % (20.0-45.0) Monocytes (%) (Auto) 12.0 % (1.0-10.0) H Eosinophils (%) (Auto) 3.7 % (0.0-3.0) H Basophils (%) (Auto) 1.3 % (0.0-2.0) Sodium Level 142 MMOL/L (136-145) Potassium Level 3.9 MMOL/L (3.5-5.1) Chloride Level 107 MMOL/L (98-107) Carbon Dioxide Level 25 MMOL/L (21-32) Anion Gap 10 mmol/L (5-15) Blood Urea Nitrogen 14 mg/dL (7-18) Creatinine 1.0 MG/DL (0.55-1.30) Estimat Glomerular Filtration Rate mL/min (>60) Glucose Level 126 MG/DL (74-106) H Calcium Level 9.2 MG/DL (8.5-10.1) Current Medications Medications (Trade) Dose Ordered Sig/Lou Route PRN Reason Start Time Stop Time Status Last Admin Dose Admin Acetaminophen (Tylenol) 650 mg Q6H PRN ORAL Mild Pain/Temp > 100.5 04/26/19 15:31 05/26/19 15:30 04/28/19 08:43 Acetaminophen/ Hydrocodone Bitart ([place] 5/325) 1 tab Q4H PRN ORAL Mild Pain (Pain Scale 1-3) 04/26/19 20:36 05/03/19 20:35 Acetaminophen/ Hydrocodone Bitart ([place] 5/325) 2 tab Q4H PRN ORAL Moderate Pain (Pain Scale 4-6) 04/26/19 20:37 05/03/19 20:36 Aspirin (ASA) 81 mg DAILY ORAL 04/27/19 09:00 05/26/19 08:59 04/27/19 09:04 Barium Sulfate (Readi-Cat 2) 450 ml NOW PRN ORAL Radiology Procedure 04/27/19 09:30 04/29/19 09:21 Barium Sulfate (Readi-Cat 2) 450 ml NOW PRN ORAL Radiology Procedure 04/27/19 23:30 04/29/19 23:24 Cefepime HCl 1 gm/ Dextrose 50 ml @ 100 mls/hr Q24H IVPB 04/27/19 12:00 05/04/19 11:59 04/27/19 11:42 Cyanocobalamin (Vitamin B12) 1,000 mcg DAILY IM 04/28/19 09:00 04/30/19 11:00 Heparin Sodium (Porcine) (Heparin 5000 units/ml) 5,000 units EVERY 12 HOURS SUBQ 04/26/19 21:00 05/25/19 20:59 04/27/19 09:05 Iohexol (OMNIPAQUE-300 100ml) 100 ml NOW PRN INJ Radiology Procedure 04/27/19 09:30 04/29/19 09:21 Iohexol (OMNIPAQUE-300 100ml) 100 ml NOW PRN INJ Radiology Procedure 04/27/19 23:30 04/29/19 23:24 Iohexol (Omnipaque) 100 mg NOW PRN INJ Radiology Procedure 04/27/19 13:15 04/28/19 13:14 Ondansetron HCl (Zofran) 4 mg Q6H PRN IVP Nausea & Vomiting 04/26/19 15:31 05/26/19 15:30 Viviana Nichole MD Apr 28, 2019 10:57
[2019-04-28] MEDS ORDERED: Levofloxacin 500mg tab ORAL SCH (11:00)
--- NOTE | 2019-04-28 21:09 | General Progress Note ---
Assessment/Plan Assessment/Plan: Assessment - abnormal CT Recommendations - CT with IV contrast - refused - follow LFT Subjective Allergies: Coded Allergies: CHOCOLATE FLAVOR (Verified Allergy, Mild, 04/25/19) Subjective Feels OK advised CT with IV contrast ordered patient declined CT understands chance of cancer diagnosis Objective Last 24 Hour Vital Signs Date Time Temp Pulse Resp B/P (MAP) Pulse Ox O2 Delivery O2 Flow Rate FiO2 04/28/19 09:00 Room Air 04/28/19 08:00 97.6 97 18 105/75 (85) 99 04/28/19 04:00 97.9 81 18 103/66 (78) 100 Intake and Output 04/27/19 04/28/19 19:00 07:00 Intake Total 770 ml 250 ml Balance 770 ml 250 ml Intake Oral 720 ml 250 ml IV Total 50 ml # Voids 3 2 Laboratory Tests 04/28/19 08:50: White Blood Count 9.2, Red Blood Count 4.72, Hemoglobin 12.7L, Hematocrit 39.9L , Mean Corpuscular Volume 85, Mean Corpuscular Hemoglobin 26.9L, Mean Corpuscular Hemoglobin Concent 31.9L, Red Cell Distribution Width 14.5, Platelet Count 335, Mean Platelet Volume 5.3L, Neutrophils (%) (Auto) 60.6, Lymphocytes (%) (Auto) 22.4, Monocytes (%) (Auto) 12.0H, Eosinophils (%) (Auto) 3.7H, Basophils (%) (Auto) 1.3, Sodium Level 142, Potassium Level 3.9, Chloride Level 107, Carbon Dioxide Level 25, Anion Gap 10, Blood Urea Nitrogen 14, Creatinine 1.0, Estimat Glomerular Filtration Rate , Glucose Level 126H, Calcium Level 9.2 Height (Feet): 5 Height (Inches): 11.00 Weight (Pounds): 146 Objective WDWN NCAT supple CTA RRR abd soft ND no edema Chastity Garza MD Apr 28, 2019 21:09
--- NOTE | 2019-04-29 02:46 | Progress Note ---
DATE: 04/28/2019 CARDIOLOGY PROGRESS NOTE SUBJECTIVE: The patient has no new distress. He denies dizziness or chest pain. Venous duplex scan was negative for DVT. OBJECTIVE: VITAL SIGNS: Blood pressure 103/66, pulse 81, and respirations 18. LUNGS: Clear. CARDIAC: Regular. Mild tenderness at left lower chest wall. ABDOMEN: Soft. EXTREMITIES: No edema. The patient refused abdominal CAT scan. The patient denies homelessness although he admitted to me that he sleeps in a car and his girlfriend driveway. LABORATORY DATA: Noted. IMPRESSION: 1. Vasovagally mediated syncopal episode due to hypovolemia. 2. Musculoskeletal chest pain. 3. Possible liver lesions versus cysts. PLAN: The patient wants to pursue abdominal CAT scan as an outpatient. He was advised to maintain adequate hydration. He can continue acetaminophen and/or ibuprofen for left-sided musculoskeletal chest pain. He was offered outpatient follow up. Zbigniew Stark M.D. DR: LINDY JOB#: [id number] CC:
--- NOTE | 2019-04-29 11:35 | Discharge Summary ---
Discharge Summary Discharge Summary _ DATE OF ADMISSION: 04/25/2019 DATE OF DISCHARGE: 04/28/2019 DISCHARGED BY: Dr Rangel REASON FOR ADMISSION: 79 years old male with no significant past medical history , presented with complaints of chest pain for 1 day. Pain reported as constant with associated shortness of breath. No radiation. Not ripping or tearing pain. Upon evaluation patient was afebrile , with slight tachycardia, pulse oximetry was stable on room air. Troponin 0.005. pro BNP 210. EKG revealed sinus tachycardia with heart rate of 110. Inverted T waves in lead II, III and aVF. Chest x-ray revealed no acute cardiopulmonary pathology. Laboratory work-up revealed leukocytosis WBC 17.6, stable hemoglobin , hematocrit and platelet count. Stable electrolytes. BUN 42, creatinine 1.1. Glucose 153. Stable LFT and lipase. Patient received aspirin and admitted to telemetry floor to rule out acute coronary syndrome. CONSULTANTS: facs teacher ID specialist Dr. Nichole GI specialist Dr. Garza [facility] COURSE: Patient admitted to telemetry floor. Spout Liner followed. Serial troponin remained negative. EKG revealed no acute ischemic changes. Patient was ruled out for acute myocardial infarction. CTA of the chest showed multiple liver hypodensity incidentally noted , may be cystic or solid and required other evaluation. No evidence of pulmonary emboli, aortic dissection or aneurysm. Echocardiogram demonstrated preserved ejection fraction of 55 to 60%. No evidence of wall motion abnormality. Right ventricular systolic pressure of 14. Venous duplex bilateral lower extremity revealed no evidence of acute DVT. Lipid panel was stable. TSH was within normal limits. Noted B12 deficiency ; B12 -256. Patient started on B12 supplements. Per cardiology, chest pain was atypical with reproducible left chest wall pain , most likely musculoskeletal chest pain. Pain management was addressed. Cautious hydration continued. Patient started on antiplatelet therapy. No clinical evidence of acute congestive heart failure. No additional cardiovascular work-up was necessarily at this time as per facs teacher. Blood sugar was closely monitored , hemoglobin A1c 5.4 , no diabetes. Patient started on empiric antibiotic. Urine culture revealed E. coli. Blood culture revealed Bacillus , likely contamination as per ID specialist. Patient was on IV antibiotics and switched to oral antibiotic upon discharge to complete the course. Leukocytosis resolved. GI specialist followed. Patient had abnormal CT scan without contrast with liver lesions. CT scan with IV contrast was ordered . Patient was explained rationale to repeat test with IV contrast . Patient declined CT scan with IV contrast. Patient understand the possibility of cancer diagnosis. LFT remained stale. Patient clinically stabilized . Supportive care provided. Patient was discharged home accompanied by his girlfriend. FINAL DIAGNOSES: Musculoskeletal chest pain Urinary tract infection with E. coli Leukocytosis -resolved Prerenal ischemia due to dehydration and hypovolemia Abnormal liver lesions B12 deficiency Hyperglycemia DISCHARGE MEDICATIONS: List of medication was sent with patient DISCHARGE INSTRUCTIONS: Patient was discharged home. Follow-up with the primary care provider. Patient was encouraged to reconsider his decision and have a CT scan of abdomen /pelvis ith IV contrast as outpatient. I have been assigned to dictate discharge summary for this account. I was not involved in the patient's management. Aubrie Sheets NP Apr 29, 2019 11:35
== END 2019-04-28 10:50 | disposition home or self-care (01) | DRG 313 ==
LOC: EDBEDREQ 13:02 → EMR 13:52 → 2E 13:55 → EDBEDREQ 14:12 → 4E 04-26 15:28
DX: R07.89 Other chest pain (principal); N39.0 Urinary tract infection, site not specified; E86.0 Dehydration; B96.20 Unspecified Escherichia coli [E. coli] as the cause of diseases classified elsewhere; E86.1 Hypovolemia; R73.9 Hyperglycemia, unspecified; E53.8 Deficiency of other specified B group vitamins; R94.31 Abnormal electrocardiogram [ECG] [EKG]; Z59.0 Homelessness; R79.89 Other specified abnormal findings of blood chemistry; K76.89 Other specified diseases of liver; R00.0 Tachycardia, unspecified
CPT/HCPCS: 36415; 71045; 71275; 80048; 80053; 80061; 81003; 82607; 82746; 82962; 83036; 83690; 83735; 83880; 84443; 84484; 85007; 85025; 85610; 85730; 87040; 87086; 87181; 93005; 93306; 93970; 96374; 99285